=== PATIENT | female | born 1985 | race Caucasian/White ===

== ENCOUNTER 2020-04-06 08:20 | Emergency (ER) | payer OTHER, SELFPAY ==
--- NOTE | 2020-04-06 08:28 | ED.EYEPROB ---
HPI - Eye Problem General Chief complaint: Eye Problems Stated complaint: possible pink eye (L) Time Seen by Provider: 04/06/20 08:36 Source: patient and RN notes reviewed Mode of arrival: ambulatory Limitations: no limitations History of Present Illness HPI Narrative: 34-year-old female presents with concern for left eye itching, redness. Reports a small amount of drainage in the corner of her eye this morning. Reports she was at [facility] for physical therapy school, and noticed her eye was red. She denies any rhinorrhea, nasal congestion, cough, fever, vision changes. chief complaint: eye redness Related Data Home Medications Medication Instructions Recorded Confirmed No Home Medications 04/06/20 04/06/20 Allergies Allergy/AdvReac Type Severity Reaction Status Date / Time No Known Allergies Allergy Mild Verified 04/06/20 08:42 Review of Systems Review of Systems: Narrative: CONSTITUTIONAL: Denies malaise, chills, sweats, or fever. EYES: Denies visual changes. Reports left eye redness, itching, small amount of discharge. ENT: Denies rhinorrhea, congestion, sinus pain, otalgia or sore throat. RESPIRATORY: Denies cough or dyspnea. SKIN: Denies rash NEUROLOGIC: Denies headache. All systems reviewed & are unremarkable except as noted in HPI and below PMFSH Family History Family History (Updated 11/08/16 @ 23:56 by DOCTOR UNKNOWN) Father Hypertension Patient's father is in good health Family history of cardiac disorder, Onset Age: 50 Grandparent Hypertension Cerebrovascular accident, Onset Age: 70 Family history of congestive heart failure, Onset Age: 60 Diabetes mellitus Mother Patient's mother is in good health Sibling Patient's sister is in good health Other Family history of allergic disorder Social History Social History Alcohol intake: current Gender identity (if verbalized by the patient): Female Comments At time of signature, agree with nursing past medical, surgical, social and family history. There is no relevant family history pertinent to the presenting complaint Exam Narrative: Exam Narrative: GENERAL: Well-appearing, well-nourished, and in no acute distress. HEAD: Normocephalic, atraumatic. EYES: PERRLA. Right eye conjunctivae clear, sclera clear. EOMI. No nystagmus. Left eye sclera conjunctive mildly injected, no purulent drainage noted. ENT: Nares clear. Mucous membranes moist. Oropharynx without erythema or lesions. Tonsils not enlarged and without exudate. NECK: Supple. CHEST: No respiratory distress. Speaks in full sentences. HEART: Regular rate and rhythm. No murmur heard. Normal peripheral pulses. SKIN: Warm, dry, no rash. NEURO: Alert and oriented x3. PSYCH: Normal mood and affect Course Course Emergency Course: Patient is aware of diagnosis, understands and agrees to treatment plan. Anticipatory guidance given. Patient agrees to follow-up as directed and is aware of reasons to seek care at the emergency department. Portions of this record may have been created with voice recognition software Vital Signs Vital signs: Vital Signs Temperature 97.3 F L 04/06/20 08:35 Pulse Rate 62 04/06/20 08:35 Respiratory Rate 16 04/06/20 08:35 Blood Pressure 111/70 04/06/20 08:35 Pulse Oximetry 100 04/06/20 08:35 Temperature 97.3 F L 04/06/20 08:35 Pulse Rate 62 04/06/20 08:35 Respiratory Rate 16 04/06/20 08:35 Blood Pressure 111/70 04/06/20 08:35 Pulse Oximetry 100 04/06/20 08:35 Reviewed. MDM - Eye Problem MDM Narrative Medical decision making narrative: Consideration of the following conditions may be warranted for the presenting problem, they are not final diagnoses: Bacterial conjunctivitis, allergic conjunctivitis, viral conjunctivitis, foreign body, blepharitis, chalazion, hordeolum, corneal abrasion. Exam findings show no acute concerns or changes; patient is non-toxic appearing and is in no distress. Patien
[2020-04-06 08:35] VITALS: BP 111/70; PULSE 62; RESP 16; TEMP 36.3; O2SAT 100
== END 2020-04-06 08:58 | disposition home or self-care (01) ==
PROVIDERS: Emergency Provider Nurse Practitioner
DX: B30.9 Viral conjunctivitis, unspecified (principal)
CPT/HCPCS: 99213; G0463

== ENCOUNTER → 2021-03-20 14:17 | Outpatient (CLI) | payer BC, SELFPAY ==
--- NOTE | ~2021-03-20 | MMUS_ITS ---
EXAMINATION: MM diagnostic josephine BI w jagruti, US breast RT limited HISTORY: Palpable lump in the upper outer quadrant of the right breast TECHNIQUE: Craniocaudal, mediolateral, and mediolateral oblique 3-D tomosynthesis images of the breas ts were performed and synthetic 2-D images were generated. CAD analysis was submitted and interpreted . High resolution limited right breast ultrasound was performed. COMPARISON: None, baseline BREAST PARENCHYMAL COMPOSITION: The breasts are extremely dense, which lowers the sensitivity of mamm ography. FINDINGS: MAMMOGRAPHIC FINDINGS: There is no evidence of suspicious mass, calcification, or architectural distortion malignancy. No mammographic correlate is identified for the reported palpable abnormality of the right breast. ULTRASOUND: There is no evidence of focal abnormal solid or cystic mass in the vicinity of the reported palpable abnormality of the right breast. IMPRESSION: 1. No specific mammographic or sonographic correlate is identified for the reported palpable abnormal ity of concern. Further evaluation at this time should be based on clinical assessment. Continued fol low-up physical examination is recommended. BI-RADS Category 1: Negative Reviewed, dictated and finalized at location A. IMPRESSION: 1. No specific mammographic or sonographic correlate is identified for the repo rted palpable abnormality of concern. Further evaluation at this time should be based on clinical assessment. Continued follow-up physical examination is acacia mmended. BI-RADS Category 1: Negative
== END ==
PROVIDERS: Visit Provider Obstetrics & Gynecology
DX: N63.10 Unspecified lump in the right breast, unspecified quadrant (principal)
CPT/HCPCS: 76642; 77062; 77066; G0279